=== PATIENT | female | born 1955 | race Caucasian/White ===

== ENCOUNTER 2025-05-05 12:00 | Inpatient (IN) | payer MEDICARE, OTHER ==
[~2025-05-05] VITALS: Ht 160 cm; Wt 54.7 kg
[~2025-05-05 12:00] MED LIST: TACR30OI4 TP
[2025-05-05] MEDS: IV NS 0.9% 500 ML BAG IV ONE (12:36)
[2025-05-05 12:37] LABS: PLATELET COUNT (AUTO) 302 K/uL (150-450); RED BLOOD CELL COUNT(AUTO) 4.36 MIL/uL (4.0-5.2); RED CELL DISTRIBUTION WIDTH 15.3 % (11.5-15.0); WHITE BLOOD COUNT (AUTO) 10.2 K/uL (4.3-11.0)
[2025-05-05 12:49] LABS: CALCIUM, SERUM 9.2 mg/dL (8.5-10.1); CREATININE 0.5 mg/dL (0.6-1.3); SODIUM SERUM 140 mmol/L (136-145); UREA NITROGEN, BLOOD 31 mg/dL (7-18)
[2025-05-05 13:30] VITALS: BP 127/86; TEMP 97.5; O2SAT 99
[2025-05-05] MEDS ORDERED: FAMO20TA8 PO (13:47)
[2025-05-05] MEDS ORDERED: OLAN5TAB3 PO ×2 (13:47)
[2025-05-05] MEDS ORDERED: NA P133E RC (13:47)
[2025-05-05] MEDS ORDERED: CARB1TAB40 PO (13:47)
[2025-05-05] MEDS ORDERED: BENZ0.5T43 PO (13:47)
[2025-05-05] MEDS ORDERED: CARB1TAB21 PO (13:47)
[2025-05-05] MEDS ORDERED: L. A1TAB10 PO (13:47)
[2025-05-05] MEDS ORDERED: ZINC50TA69 PO (13:47)
[2025-05-05] MEDS ORDERED: MIRT-90 PO (13:47)
[2025-05-05] MEDS ORDERED: DICL100G34 TP (13:47)
[2025-05-05] MEDS ORDERED: MAG30ORA PO (13:47)
[2025-05-05] MEDS ORDERED: ACET325T53 PO (13:47)
[2025-05-05] MEDS ORDERED: GABA300C PO (13:47)
[2025-05-05] MEDS ORDERED: ATOR40TA PO (13:47)
[2025-05-05] MEDS ORDERED: MAGN400O6 PO (13:47)
[2025-05-05] MEDS ORDERED: HALO50FO3 TP (13:47)
[2025-05-05] MEDS ORDERED: POLY17PO4 PO (13:47)
[2025-05-05] MEDS ORDERED: ASCO500T10 PO (13:47)
[2025-05-05] MEDS ORDERED: MULT-754 PO (13:47)
[2025-05-05] MEDS ORDERED: BISA10SU11 RC (13:47)
[2025-05-05] MEDS ORDERED: MELA3TAB41 PO (13:47)
[2025-05-05] MEDS ORDERED: CLON0.5T4 PO (13:47)
[2025-05-05] MEDS ORDERED: DIVA125C5 PO (13:47)
[2025-05-05] MEDS ORDERED: CHOL200074 PO (13:47)
[2025-05-05] MEDS ORDERED: SENN8.6T19 PO (13:47)
[2025-05-05] MEDS ORDERED: ACET-73 PO (13:47)
[2025-05-05] MEDS ORDERED: ZOLP5TAB8 PO (13:47)
[2025-05-05] MEDS ORDERED: DIGO125T PO (13:47)
[2025-05-05] MEDS ORDERED: Z GUARD REMEDY 4 OZ OINT TP PRN (19:30)
[2025-05-05] MEDS ORDERED: ONDANSETRON HCL/PF 4 MG/2 ML VIAL IVP PRN (19:30)
[2025-05-05] MEDS: ENOXAPARIN SODIUM 40 MG/0.4 ML DISP.SYRIN SQ SCH (19:30)
[2025-05-05 20:00] VITALS: BP 126/73; TEMP 98.2; O2SAT 95
[2025-05-06] MEDS: ATORVASTATIN 40 MG TABLET NG SCH (00:27)
[2025-05-06] MEDS: GABAPENTIN 300 MG CAPSULE NG SCH (00:27)
[2025-05-06 07:07] LABS: PLATELET COUNT (AUTO) 322 K/uL (150-450); RED BLOOD CELL COUNT(AUTO) 3.89 MIL/uL (4.0-5.2); RED CELL DISTRIBUTION WIDTH 14.9 % (11.5-15.0); WHITE BLOOD COUNT (AUTO) 7.4 K/uL (4.3-11.0)
[2025-05-06 07:25] LABS: ASPARTATE AMINOTRANSFERASE 27.0 U/L (15-37); CALCIUM, SERUM 8.4 mg/dL (8.5-10.1); CREATININE 0.3 mg/dL (0.6-1.3); PHOSPHORUS 3.0 mg/dL (2.5-4.9); SODIUM SERUM 143.0 mmol/L (136-145); TOTAL PROTEIN, SERUM 6.2 g/dL (6.4-8.2); UREA NITROGEN, BLOOD 29.0 mg/dL (7-18)
[2025-05-06 07:28] LABS: IRON, SERUM 38.0 ug/dl (50-175)
[2025-05-06 07:38] LABS: LDL 91.0 mg/dL (0-99)
[2025-05-06 08:00] VITALS: BP 139/87; TEMP 98.6; O2SAT 94
[2025-05-06] MEDS: CARBIDOPA/LEVODOPA 25/100 MG 1 UDTAB NG SCH (09:34)
[2025-05-06] MEDS: DIVALPROEX SODIUM 125 MG CAP.SPRINK NG SCH (09:34)
[2025-05-06] MEDS: BENZTROPINE MESYLATE (1 MG) 1 MG TABLET NG SCH (09:34)
[2025-05-06] MEDS: CARBIDOPA/LEV CR 50/200 MG 1 UDTAB.SA NG SCH (09:36)
[2025-05-06] MEDS: POTASSIUM CHLORIDE 20 MEQ POWDER PACKET NG SCH (09:37)
[2025-05-06] MEDS: DIGOXIN ELIX UDC 0.25 MG/5 ML UDC GT SCH (13:03)
[2025-05-06 16:00] VITALS: BP 159/94; TEMP 98.2; O2SAT 96
[2025-05-06 17:47] LABS: INR 0.94 (0.91-1.10)
[2025-05-06 20:00] VITALS: BP 126/92; TEMP 97.9; O2SAT 100
[2025-05-06] MEDS: ACETAMINOPHEN 325 MG TABLET PO PRN (21:05)
[2025-05-07 07:15] LABS: PLATELET COUNT (AUTO) 328 K/uL (150-450); RED BLOOD CELL COUNT(AUTO) 4.23 MIL/uL (4.0-5.2); RED CELL DISTRIBUTION WIDTH 15.1 % (11.5-15.0); WHITE BLOOD COUNT (AUTO) 11.0 K/uL (4.3-11.0)
[2025-05-07 07:16] LABS: INR 0.94 (0.91-1.10)
[2025-05-07 07:28] LABS: CALCIUM, SERUM 8.7 mg/dL (8.5-10.1); CREATININE 0.4 mg/dL (0.6-1.3); PHOSPHORUS 3.0 mg/dL (2.5-4.9); SODIUM SERUM 144.0 mmol/L (136-145); UREA NITROGEN, BLOOD 27.0 mg/dL (7-18)
[2025-05-07 08:00] VITALS: BP 126/88; TEMP 98; O2SAT 96
[2025-05-07] MEDS ORDERED: KETAMINE HCL (500MG/10ML) 50 MG/ML VIAL ONE (09:26)
[2025-05-07 16:00] VITALS: BP 136/93; TEMP 97.5; O2SAT 97
[2025-05-07 20:00] VITALS: BP 135/74; TEMP 97.5; O2SAT 94
[2025-05-08 07:08] LABS: PLATELET COUNT (AUTO) 337 K/uL (150-450); RED BLOOD CELL COUNT(AUTO) 3.99 MIL/uL (4.0-5.2); RED CELL DISTRIBUTION WIDTH 14.8 % (11.5-15.0); WHITE BLOOD COUNT (AUTO) 10.7 K/uL (4.3-11.0)
[2025-05-08 07:23] LABS: CALCIUM, SERUM 8.5 mg/dL (8.5-10.1); CREATININE 0.4 mg/dL (0.6-1.3); PHOSPHORUS 3.4 mg/dL (2.5-4.9); SODIUM SERUM 147.0 mmol/L (136-145); UREA NITROGEN, BLOOD 20.0 mg/dL (7-18)
[2025-05-08 08:00] VITALS: BP 131/84; TEMP 98.2; O2SAT 93
[2025-05-08 16:00] VITALS: BP 136/77; TEMP 98.2; O2SAT 95
[2025-05-08] MEDS: JEVITY 1.2 CAL 1,000 ML BOTTLE GT PRN (19:35)
[2025-05-08 20:00] VITALS: BP 127/88; TEMP 97.9; O2SAT 97
[2025-05-08 20:27] VITALS: BP 117/88; TEMP 208.2; TEMP 97.9; O2SAT 99
[2025-05-09 06:33] VITALS: BP 117/88; TEMP 97.9; O2SAT 99
[2025-05-09 07:13] LABS: PLATELET COUNT (AUTO) 355 K/uL (150-450); RED BLOOD CELL COUNT(AUTO) 4.04 MIL/uL (4.0-5.2); RED CELL DISTRIBUTION WIDTH 14.9 % (11.5-15.0); WHITE BLOOD COUNT (AUTO) 8.3 K/uL (4.3-11.0)
[2025-05-09 08:00] VITALS: BP 129/89; TEMP 98.6; O2SAT 96
[2025-05-09 08:17] LABS: CALCIUM, SERUM 8.2 mg/dL (8.5-10.1); CREATININE 0.3 mg/dL (0.6-1.3); PHOSPHORUS 2.5 mg/dL (2.5-4.9); SODIUM SERUM 147.0 mmol/L (136-145); UREA NITROGEN, BLOOD 22.0 mg/dL (7-18)
[2025-05-09 16:00] VITALS: BP 143/91; TEMP 98.3; O2SAT 96
[2025-05-09] MEDS ORDERED: ANESTHESIA TRAY IN PYXIS 1 EA TRAY MC ONE ×2 (18:33→22:13)
[2025-05-09 20:00] VITALS: BP 131/95; TEMP 98.1; O2SAT 97
[2025-05-10 07:20] LABS: PLATELET COUNT (AUTO) 404 K/uL (150-450); RED BLOOD CELL COUNT(AUTO) 4.40 MIL/uL (4.0-5.2); RED CELL DISTRIBUTION WIDTH 15.0 % (11.5-15.0); WHITE BLOOD COUNT (AUTO) 16.7 K/uL (4.3-11.0)
[2025-05-10 07:56] LABS: CALCIUM, SERUM 8.6 mg/dL (8.5-10.1); CREATININE 0.3 mg/dL (0.6-1.3); PHOSPHORUS 2.8 mg/dL (2.5-4.9); SODIUM SERUM 147.0 mmol/L (136-145); UREA NITROGEN, BLOOD 23.0 mg/dL (7-18)
[2025-05-10 08:00] VITALS: BP 112/70; TEMP 98; O2SAT 96
[2025-05-10 16:00] VITALS: BP 97/79; TEMP 97.9; O2SAT 95
[2025-05-10 20:34] VITALS: BP 105/72; TEMP 97.7; O2SAT 95
[2025-05-10 20:42] VITALS: BP 110/70; TEMP 97.7; O2SAT 95
[2025-05-11 06:53] LABS: PLATELET COUNT (AUTO) 335 K/uL (150-450); RED BLOOD CELL COUNT(AUTO) 4.39 MIL/uL (4.0-5.2); RED CELL DISTRIBUTION WIDTH 15.7 % (11.5-15.0); WHITE BLOOD COUNT (AUTO) 9.4 K/uL (4.3-11.0)
[2025-05-11 06:59] LABS: CALCIUM, SERUM 8.6 mg/dL (8.5-10.1); CREATININE 0.6 mg/dL (0.6-1.3); PHOSPHORUS 3.2 mg/dL (2.5-4.9); SODIUM SERUM 143.0 mmol/L (136-145); UREA NITROGEN, BLOOD 29.0 mg/dL (7-18)
[2025-05-11 08:00] VITALS: BP 119/73; TEMP 97.7; O2SAT 98
[2025-05-11] MEDS ORDERED: CLON0.5T4 NG (11:19)
[2025-05-11] MEDS ORDERED: DIGO50SO2 GT (11:19)
[2025-05-11] MEDS ORDERED: LACT-209 GT (11:19)
[2025-05-11] MEDS ORDERED: DIVA125C2 NG (11:19)
[2025-05-11] MEDS ORDERED: Carbidopa/Levodopa 25/100 Mg NG (11:19)
[2025-05-11] MEDS ORDERED: BENZ1TAB7 NG (11:19)
[2025-05-11] MEDS ORDERED: CARB1TAB60 NG (11:19)
[2025-05-11] MEDS ORDERED: GABA300C NG (11:19)
[2025-05-11] MEDS ORDERED: ATOR40TA NG (11:19)
== END 2025-05-11 18:32 | DRG 57 ==
LOC: ER 12:05 → MED 13:16
PROVIDERS: ADMIT Nurse Practitioner Acute Care; ATTEND Nurse Practitioner Acute Care
PROC: 0DJ08ZZ Inspection of Upper Intestinal Tract, Via Natural or Artificial Opening Endoscopic (ICD-10-PCS; principal; 2025-05-07 10:25)
PROC: 0DH63UZ Insertion of Feeding Device into Stomach, Percutaneous Approach (ICD-10-PCS; 2025-05-09)
DX: G20.A1 Parkinson's disease without dyskinesia, without mention of fluctuations (principal); E44.0 Moderate protein-calorie malnutrition; R64 Cachexia; D68.69 Other thrombophilia; N17.9 Acute kidney failure, unspecified; R62.7 Adult failure to thrive; Z93.1 Gastrostomy status; I11.9 Hypertensive heart disease without heart failure; K21.9 Gastro-esophageal reflux disease without esophagitis; I48.0 Paroxysmal atrial fibrillation; E78.5 Hyperlipidemia, unspecified; E88.09 Other disorders of plasma-protein metabolism, not elsewhere classified; M19.90 Unspecified osteoarthritis, unspecified site; L60.3 Nail dystrophy; R13.10 Dysphagia, unspecified; M20.42 Other hammer toe(s) (acquired), left foot; M20.41 Other hammer toe(s) (acquired), right foot; G89.29 Other chronic pain; K29.70 Gastritis, unspecified, without bleeding; Z68.21 Body mass index [BMI] 21.0-21.9, adult; F02.80 Dementia in other diseases classified elsewhere, unspecified severity, without behavioral disturbance, psychotic disturbance, mood disturbance, and anxiety; K58.9 Irritable bowel syndrome, unspecified; K59.00 Constipation, unspecified; G62.9 Polyneuropathy, unspecified; K29.80 Duodenitis without bleeding; M24.571 Contracture, right ankle; M24.572 Contracture, left ankle
CPT/HCPCS: 36415; 43246; 71045-TC; 80048-TC; 80053-TC; 80061-TC; 83540-TC; 83735-TC; 84100-TC; 84134-TC; 84443-TC; 85025-TC; 85610-TC; 85730-TC; 87081-TC; 92526; 92611; G0378; J0690; J1650; J2704; J3490; J7030; J7040